=== PATIENT | female | born 1945 | race Caucasian/White ===

== ENCOUNTER → 2017-01-05 | Outpatient (CLI) | payer MEDICARE, OTHER ==
--- NOTE | 2017-01-05 11:16 | REP ---
Chest x-ray: Two views History: Fever, chills and cough. Comparison study April 17, 2013. Findings: There is a very large hiatal hernia behind the heart with air fluid levels. This is larger than the hiatal hernia seen in this location on April 17, 2013. The heart is not enlarged. Aorta is calcific and tortuous. The lungs are well inflated and otherwise clear. Pleural angles are sharp. There are degenerative changes in the thoracic spine. There is some effacement of the right since side of the trachea at the thoracic inlet, slightly more prominent than on the 2013 study suggesting right thyroid enlargement. No other abnormality. Impression: Large hiatal hernia. Otherwise no active cardiopulmonary disease. Presumed right-sided goiter. Signed by Ry Ruth MD 01/05/2017 02:55 P
== END ==
LOC: M LRY 10:16
PROVIDERS: ATTEND Physician Assistant
DX: R50.9 Fever, unspecified (principal); R05 Cough; K44.9 Diaphragmatic hernia without obstruction or gangrene
CPT/HCPCS: 71020; 87804; 87880; G0463

== ENCOUNTER → 2017-01-05 | Outpatient (REF) | payer MEDICARE, OTHER | LOC: M SFHCLERA 09:50 | PROVIDERS: ATTEND Physician Assistant | DX: J02.9 Acute pharyngitis, unspecified (principal) ==

== ENCOUNTER 2018-11-07 07:28 | Day surgery (SDC) | payer MEDICARE, OTHER ==
[~2018-11-07] VITALS: Ht 165.1 cm; Wt 78.5 kg
[~2018-11-07 07:28] MED LIST: DICY10CA13 PO; NS 1,000 ML IV ONE; PRAV80TA2 PO; PROAAER10 INH; SYMB16INH INH; TRIA37.5 PO
[2018-11-07] MEDS ORDERED: PROPOFOL 200 MG/20 ML VIAL As Ordered ONE (07:33)
[2018-11-07] MEDS ORDERED: LIDOCAINE 2% INJ 100 MG/5 ML SDV (FOR ANES.) As Ordered ONE (07:33)
--- NOTE | 2018-11-07 08:44 | ROOR ---
Patient Name: Blanka Cooper Procedure Date: 11/07/2018 8:16 AM Date of : 1945 Age: 73 Room: [facility] Gender: Female Note Status: Finalized Procedure: Colonoscopy Indications: Chronic diarrhea (spontaneously resolved after 4 months of unexplained diarrhea) Providers: Gregorio RKUSE MD Referring MD: ANDREW SAUCEDO NP Requesting Provider: Medicines: Monitored Anesthesia Care Complications: No immediate complications. Procedure: Pre-Anesthesia Assessment: - The heart rate, respiratory rate, oxygen saturations, blood pressure, adequacy of pulmonary ventilation, and response to care were monitored throughout the procedure. The Colonoscope was introduced through the anus and advanced to 10 cm into the ileum. The colonoscopy was performed without difficulty. The patient tolerated the procedure well. The quality of the bowel preparation was good. Findings: The perianal and digital rectal examinations were normal. Mild sigmoid diverticulosis and small internal hemorrhoids. The entire examined colon appeared normal on direct and retroflexion views. Biopsies for histology were taken with a cold forceps for evaluation of microscopic colitis. The terminal ileum appeared normal. Impression: - Mild sigmoid diverticulosis and small internal hemorrhoids. - The entire colon is otherwise normal on direct and retroflexion views. - The examined portion of the ileum was normal. - Biopsies were taken with a cold forceps for evaluation of microscopic colitis. Recommendation: - Telephone endoscopist for pathology results in 2 weeks. - Continue present medications. Gregorio Kruse MD Gregorio KRUSE MD 11/07/2018 8:44:27 AM This report has been signed electronically. Number of Addenda: 0 Note Initiated On: 11/07/2018 8:16 AM Estimated Blood Loss: Estimated blood loss: none.
[2018-11-07 09:00] VITALS: BP 141/95
== END 2018-11-07 09:09 | disposition home or self-care (01) ==
LOC: M OPP 07:28
PROVIDERS: ATTEND Internal Medicine Gastroenterology
DX: K52.9 Noninfective gastroenteritis and colitis, unspecified (principal); D12.6 Benign neoplasm of colon, unspecified; K57.30 Diverticulosis of large intestine without perforation or abscess without bleeding; K64.8 Other hemorrhoids; R12 Heartburn; J45.909 Unspecified asthma, uncomplicated; D64.9 Anemia, unspecified; K21.9 Gastro-esophageal reflux disease without esophagitis; M19.90 Unspecified osteoarthritis, unspecified site; E78.5 Hyperlipidemia, unspecified; I10 Essential (primary) hypertension; Z79.899 Other long term (current) drug therapy; Z91.048 Other nonmedicinal substance allergy status

== ENCOUNTER → 2019-03-15 | Outpatient (CLI) | payer MEDICARE, OTHER ==
[~2019-03-15] MED LIST changes: -NS 1,000 ML IV ONE
--- NOTE | 2019-03-15 11:52 | REPMRS ---
Patient History The patient states she had a clinical breast exam in 02/2019. Patient is postmenopausal. Family history of pancreatic cancer at age 50 or over in paternal uncle, breast cancer at age 58 in maternal half sister. No Hormone Replacement Therapy 3D TOMOSYNTHESIS WAS PERFORMED. The [facility] lifetime risk for breast cancer is 5.4%. Digital Woman Screen Mammo: March 15, 2019 - Exam #: [id number] Bilateral CC and MLO view(s) were taken. Technologist: Klaudia Duran, Technologist Prior study comparison: October 11, 2012, digital woman screen mammo performed at [facility]. April 24, 2011, bilateral bilat screen digital mammo performed at [facility]. FINDINGS: There are scattered fibroglandular densities. There has been no change in the appearance of the mammogram from the prior studies. There is a mild amount of residual fibroglandular tissue which is fairly symmetric. There is no interval development of dominant mass, architectural distortion, or clustered microcalcification suggestive of malignancy. Assessment: BI-RADS/ACR category 1 mammogram. Negative Mammogram. Recommendation Routine screening mammogram in 1 year (for women over age 40). This mammogram was interpreted with the aid of an FDA-approved computer-aided dectection system. Electronically Signed By: Donis Espinoza MD 03/15/19 [id number]
== END ==
LOC: M WHC 10:13
PROVIDERS: ATTEND Nurse Practitioner Women's Health
DX: Z01.419 Encounter for gynecological examination (general) (routine) without abnormal findings (principal); Z12.31 Encounter for screening mammogram for malignant neoplasm of breast; Z78.0 Asymptomatic menopausal state; Z80.3 Family history of malignant neoplasm of breast
CPT/HCPCS: 77063; 77067; G0101

== ENCOUNTER → 2019-06-27 | Outpatient (CLI) | payer MEDICARE, OTHER ==
[~2019-06-27] MED LIST changes: +E-Z-GAS II EFFERVESCENT PACKET (SODIUM BICARB./CITRIC ACID/SIMETHICONE) As Ordered ONE; +E-Z-HD 98% w/w 340GM SUSP BTL As Ordered ONE; +E-Z-PAQUE 96% w/w SUSP 176GM BTL As Ordered ONE
--- NOTE | 2019-06-27 16:42 | REP ---
Upper GI air contrast The procedure was performed under the direct supervision of Dr. Espinoza. The images were reviewed with Dr. 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 The intestinal gas pattern is non-specific. There are surgical sutures noted in the pelvis. Liquid barium and gas producing crystals were given in the erect position as well as liquid barium in the prone oblique position in order to perform a double contrast upper GI examination. The oral and pharyngeal stages of deglutition are unremarkable. Esophageal transport is prompt and efficient and there is no esophagitis, stricture or mucosal ring. There is a fixed hiatal hernia involving the whole stomach. The duodenum appears to lie below the diaphragm. There is gastroesophageal reflux demonstrated to above the level of the bridget. The stomach guadarrama are normally outlined . The rugal folds are smooth and regular. There is no gastritis neoplasm or ulcer disease. The duodenal guadarrama are normally outlined . The mucosal folds are smooth and regular. There is no duodenitis pancreatitis peptic ulcer disease or neoplasm. The visualized portion of the proximal small bowel appears normal in course and caliber. Impression: There is a hiatal hernia involving the whole stomach. The duodenum appears to lie below the diaphragm. There is gastroesophageal reflux demonstrated to above the level of the bridget. 1.2 minutes of fluoro time was utilized for this procedure. Electronically Signed by GEORGIANA Witt 06/27/2019 02:25 P Electronically Signed by Donis Espinoza MD 06/27/2019 04:33 P
== END ==
LOC: M RAD 08:33
PROVIDERS: ATTEND Physician Assistant Surgical
DX: K44.9 Diaphragmatic hernia without obstruction or gangrene (principal); K21.9 Gastro-esophageal reflux disease without esophagitis

== ENCOUNTER → 2021-04-22 | Outpatient (CLI) | payer MEDICARE, OTHER ==
[~2021-04-22] MED LIST changes: -E-Z-GAS II EFFERVESCENT PACKET (SODIUM BICARB./CITRIC ACID/SIMETHICONE) As Ordered ONE; -E-Z-HD 98% w/w 340GM SUSP BTL As Ordered ONE; -E-Z-PAQUE 96% w/w SUSP 176GM BTL As Ordered ONE
--- NOTE | 2021-04-22 17:04 | REPMRS ---
Patient History The patient states she had a clinical breast exam in March 2021. Family history of pancreatic cancer at age 50 or over in paternal uncle, breast cancer at age 58 in maternal half sister. No Hormone Replacement Therapy No breast complaints or changes today Patient signed the MRS sheet 1st covid vaccine early Oct-right arm-not sure which kind 2nd covid vaccine early November-right arm Priors on PACS Patient Identification Verified Digital Woman Screen Mammo: April 22, 2021 - Exam #: [id number] Bilateral CC and MLO view(s) were taken. Technologist: Lorena Martinez, Technologist Prior study comparison: April 19, 2020, bilateral digital woman screen mammo performed at [facility]. March 15, 2019, bilateral digital woman screen mammo performed at [facility]. FINDINGS: There are scattered fibroglandular densities. Screening. Digital screening (2D) mammography was performed bilaterally in the CC and MLO projections. Additionally, breast tomosynthesis (3D mammography) was performed bilaterally in the CC and MLO projections. Todays exam was compared to the prior exam/exams. By history, the patient has no complaints of a palpable breast abnormality or other significant breast complaints. The breasts are unchanged in size and shape. There are no esdras-soft tissue densities or spiculated masses. There is no internal architectural distortion. Once again, stable benign appearing calcifications are seen.There are no suspicious esdras-calcific clusters. Skin thickening or nipple retraction is not present. IMPRESSION: BI-RADS Category 2- Benign Findings. There is no evidence of malignant alteration of the breasts. Followup examination recommended in one year. The Volpara volumetric breast density category is B, there are scattered areas of fibroglandular densities. This mammogram [facility] FDA approved computer aided detection system for mammography. The lifetime Tyrer-Cuzick score is 4.7 % Negative x-ray reports should not delay surgical consultation if a dominant or clinically suspicious mass is present. Not all breast cancers can be identified by mammography. Therefore, we recommend that you continue to perform regular breast self-examination and physical examination and then promptly contact your physician of any concerns or changes. Adenosis and dense breasts may obscure an underlying neoplasm. Assessment: BI-RADS/ACR category 2 mammogram. Benign Findings. Recommendation Routine screening mammogram of both breasts in 1 year. Electronically Signed By: Bon Amos DO 04/22/21 [id number]
== END ==
LOC: M WHC 09:32
PROVIDERS: ATTEND Nurse Practitioner Women's Health
DX: Z12.31 Encounter for screening mammogram for malignant neoplasm of breast (principal)

== ENCOUNTER → 2022-07-02 | Outpatient (CLI) | payer MEDICARE, OTHER | LOC: M WHC 07:25 | PROVIDERS: ATTEND Nurse Practitioner Family | DX: Z12.31 Encounter for screening mammogram for malignant neoplasm of breast (principal) ==

== ENCOUNTER → 2024-08-09 | Outpatient (CLI) | payer MEDICARE, OTHER ==
[~2024-08-09] MED LIST changes: +DICY-61 PO; -DICY10CA13 PO
== END ==
LOC: M WHC 10:52
PROVIDERS: ATTEND Registered Nurse
DX: Z12.31 Encounter for screening mammogram for malignant neoplasm of breast (principal)